=== PATIENT | male | born 1970 | race American Indian/Alaskan Native ===

== ENCOUNTER 2017-09-30 09:09 | Inpatient (IN) | payer OTHER ==
[2017-09-30 10:01] LABS: Basophils % (Auto) 0.8 % (0.0-1.8); Eosinophils # (Auto) 0.1 K/mm3 (0.0-0.4); Eosinophils % (Auto) 1.5 % (0.0-4.3); Hematocrit 47.1 % (35.5-45.6); Hemoglobin 15.6 gm/dl (11.8-15.2); Lymphocytes # (Auto) 1.8 K/mm3 (1.2-5.4); Lymphocytes % (Auto) 37.7 % (13.4-35.0); Mean Corpuscular HGB Conc 33 % (32-34); Mean Corpuscular Hemoglobin 31 pg (28-32); Mean Corpuscular Volume 93 fl (84-94); Monocytes # (Auto) 0.3 K/mm3 (0.0-0.8); Monocytes % (Auto) 6.6 % (0.0-7.3); Platelet Count 134 K/mm3 (140-440); Red Blood Count 5.09 M/mm3 (3.65-5.03); Red Cell Distribution Width 14.5 % (13.2-15.2)
[2017-09-30 10:27] LABS: BUN/Creatinine Ratio 12; Blood Urea Nitrogen 7 mg/dL (9-20); Calcium 8.5 mg/dL (8.4-10.2); Hemolysis Index 14
--- NOTE | 2017-09-30 11:04 | XRay Report ---
CHEST XRAY, 2 VIEWS: History: Shortness of breath. Findings: There is mild cardiomegaly. Pulmonary vessels are within normal limits. The lungs are clear and fully expanded. No infiltrate, pleural effusion or pneumothorax. Normal thoracic cage. IMPRESSION: Cardiomegaly.
[2017-09-30] MEDS ORDERED: ATIVAN IV PRN ×3 (12:42)
--- NOTE | 2017-09-30 13:04 | Emergency Department Report ---
ED Extremity Problem HPI - General Chief complaint: Dyspnea/Respdistress Stated complaint: BILATERAL LEG SWELLING Time Seen by Provider: 09/30/17 12:41 Source: patient, old records reviewed (no previous medical record for review) Mode of arrival: Ambulatory Limitations: No Limitations - History of Present Illness Initial comments: 47-year-old male with a history of daily alcohol use up until 3 days ago and no known past medical history presents to the hospital complaining of progressively worsening intermittent bilateral lower extremity swelling for several weeks. Patient has not seen a physician in many years. Patient was drinking 2 pints of wine and four 24 ounces of beer daily up until 3 days ago. Patient denies tremors or history of alcohol withdrawal seizures. Patient has pain to bilateral legs with mild to moderate tightness. Left leg is more swollen than the right. No recent travel or history of PE/DVT reported. Patient complains of some abdominal distention, mild dyspnea and exertion and orthopnea. - Related Data Home Medications Medication Instructions Recorded Confirmed Last Taken No Known Home Medications [No 09/30/17 09/30/17 Unknown Reported Home Medications] Allergies Allergy/AdvReac Type Severity Reaction Status Date / Time No Known Allergies Allergy Unverified 01/09/14 10:30 ED Review of Systems ROS: Stated complaint: BILATERAL LEG SWELLING Other details as noted in HPI Comment: All other systems reviewed and negative ED Past Medical Hx - Past Medical History Previous Medical History?: No - Surgical History Past Surgical History?: No - Social History Smoking Status: Current Every Day Smoker Substance Use Type: Alcohol - Medications Home Medications: Home Medications Medication Instructions Recorded Confirmed Last Taken Type No Known Home Medications [No 09/30/17 09/30/17 Unknown History Reported Home Medications] ED Physical Exam - General Limitations: No Limitations - Other Other exam information: General: No limitations Head exam: Atraumatic, normocephalic Eyes exam: Normal appearance, mild proptosis ENT: Moist mucous membrane, normal oropharynx Neck exam: Normal inspection, full range of motion, no meningismus nontender Respiratory exam: Clear to auscultation bilateral, no wheezes, rales, crackles Cardiovascular: Normal rate and rhythm, normal heart sounds Abdomen: Soft, nondistended, and nontender, with normal bowel sounds, no rebound, or guarding Extremity: Bilateral lower extremity pitting edema from the feet extending caudally to the thighs and lower abdominal wall. Left leg greater than the right. No warmth or erythema. Mild calf tenderness bilaterally. 2+ DP pulses equal bilaterally. Back: Normal Inspection, full range of motion, no tenderness Neurologic: Alert, oriented x3, cranial nerves intact, no motor or sensory deficit, no tremor Psychiatric: normal affect, normal mood Skin: Warm, dry, intact ED Course Vital Signs 09/30/17 09/30/17 09/30/17 09:17 14:41 15:52 Temperature 98.2 F 98.2 F Pulse Rate 109 H 95 H 91 H Respiratory 18 16 18 Rate Blood Pressure 181/128 Blood Pressure 137/102 143/111 [Left] O2 Sat by Pulse 97 96 94 Oximetry ED Medical Decision Making - Lab Data Result diagrams: 09/30/17 09:53 09/30/17 09:53 Lab Results 09/30/17 09/30/17 09/30/17 Range/Units 09:19 09:53 09:53 WBC 4.6 (4.5-11.0) K/mm3 RBC 5.09 H (3.65-5.03) M/mm3 Hgb 15.6 H (11.8-15.2) gm/dl Hct 47.1 H (35.5-45.6) % MCV 93 (84-94) fl MCH 31 (28-32) pg MCHC 33 (32-34) % RDW 14.5 (13.2-15.2) % Plt Count 134 L (140-440) K/mm3 Lymph % (Auto) 37.7 H (13.4-35.0) % [place] % (Auto) 6.6 (0.0-7.3) % Eos % (Auto) 1.5 (0.0-4.3) % Baso % (Auto) 0.8 (0.0-1.8) % Lymph # 1.8 (1.2-5.4) K/mm3 [place] # 0.3 (0.0-0.8) K/mm3 Eos # 0.1 (0.0-0.4) K/mm3 Baso # 0.0 (0.0-0.1) K/mm3 Seg Neutrophils % 53.4 (40.0-70.0) % Seg Neutrophils # 2.5 (1.8-7.7) K/mm3 Sodium 134 L (137-145) mmol/L Potassium 4.1 (3.6-5.0) mmol/L Chloride 97.8 L (98-107) mmol/L Carbon Dioxide 26 (22-30) mmol/L Anion Gap 14 mmol/L BUN 7 L (9-20) mg/dL Creatinine 0.6 L (0.8-1.5) mg/dL Estimated GFR > 60 ml/min BUN/Creatinine Ratio 12 % Glucose 146 H (75-100) mg/dL POC Glucose 134 H (70-105) Calcium 8.5 (8.4-10.2) mg/dL Magnesium (1.7-2.3) mg/dL Total Bilirubin (0.1-1.2) mg/dL Direct Bilirubin (0-0.2) mg/dL Indirect Bilirubin mg/dL AST (5-40) units/L ALT (7-56) units/L Alkaline Phosphatase (35-129) units/L NT-Pro-B Natriuret Pep 925.4 H (0-450) pg/mL Total Protein (6.3-8.2) g/dL Albumin (3.9-5) g/dL Albumin/Globulin Ratio % 04/26/18 Range/Units 09:53 WBC (4.5-11.0) K/mm3 RBC (3.65-5.03) M/mm3 Hgb (11.8-15.2) gm/dl Hct (35.5-45.6) % MCV (84-94) fl MCH (28-32) pg MCHC (32-34) % RDW (13.2-15.2) % Plt Count (140-440) K/mm3 Lymph % (Auto) (13.4-35.0) % [place] % (Auto) (0.0-7.3) % Eos % (Auto) (0.0-4.3) % Baso % (Auto) (0.0-1.8) % Lymph # (1.2-5.4) K/mm3 [place] # (0.0-0.8) K/mm3 Eos # (0.0-0.4) K/mm3 Baso # (0.0-0.1) K/mm3 Seg Neutrophils % (40.0-70.0) % Seg Neutrophils # (1.8-7.7) K/mm3 Sodium (137-145) mmol/L Potassium (3.6-5.0) mmol/L Chloride (98-107) mmol/L Carbon Dioxide (22-30) mmol/L Anion Gap mmol/L BUN (9-20) mg/dL Creatinine (0.8-1.5) mg/dL Estimated GFR ml/min BUN/Creatinine Ratio % Glucose (75-100) mg/dL POC Glucose (70-105) Calcium (8.4-10.2) mg/dL Magnesium 1.50 L (1.7-2.3) mg/dL Total Bilirubin 1.40 H (0.1-1.2) mg/dL Direct Bilirubin 0.5 H (0-0.2) mg/dL Indirect Bilirubin 0.9 mg/dL AST 21 (5-40) units/L ALT 13 (7-56) units/L Alkaline Phosphatase 122 (35-129) units/L NT-Pro-B Natriuret Pep (0-450) pg/mL Total Protein 6.9 (6.3-8.2) g/dL Albumin 3.6 L (3.9-5) g/dL Albumin/Globulin Ratio 1.1 % - EKG Data -: EKG Interpreted by [facility] EKG shows normal: sinus rhythm, axis (qrs -39), QRS complexes (qrsd 109), ST-T waves (no stemi/t inv) Rate: normal (99) - EKG Data When compared to previous EKG there are: previous EKG unavailable - Radiology Data Radiology results: report reviewed READ BY RADIOLOGIST CHEST XRAY, 2 VIEWS: History: Shortness of breath. Findings: There is mild cardiomegaly. Pulmonary vessels are within normal limits. The lungs are clear and fully expanded. No infiltrate, pleural effusion or pneumothorax. Normal thoracic cage. IMPRESSION: Cardiomegaly. Preliminary bilateral Doppler negative for DVT - Medical Decision Making Significant bilateral lower extremity edema without previous history. Elevated blood pressure and history of alcohol abuse. Plan to admit patient to the hospital for further workup. Mild elevation in BNP and patient may have new diagnosis of heart failure. Patient received IV magnesium for mild hypomagnesemia. CIWA protocol initiated but no signs of tremors during ED stay - Differential Diagnosis liver failure, renal failure, heart failure, hypertension, alcohol abuse Critical Care Time: No Critical care attestation.: If time is entered above; I have spent that time in minutes in the direct care of this critically ill patient, excluding procedure time. ED Disposition Clinical Impression: Bilateral leg edema, Alcohol abuse, Elevated blood pressure reading, Dyspnea Disposition: OP ADMIT IP TO THIS HOSP Is pt being admited?: Yes Condition: Stable Time of Disposition: 15:57 (Julia/hosp)
[2017-09-30 13:07] LABS: Albumin 3.6 g/dL (3.9-5); Bilirubin,Direct 0.5 mg/dL (0-0.2)
[2017-09-30] MEDS ORDERED: MAGNESIUM SULFATE 2GM/50ML 2 GM/50 ML BAG IV ONE (13:21)
[2017-09-30] MEDS ORDERED: APRESOLINE IV ONE (22:53)
--- NOTE | 2017-09-30 23:06 | History and Physical Report ---
History of Present Illness Date of examination: 09/30/17 Date of admission: 09/30/17 15:58 Chief complaint: Chief complaint: Swelling of both the legs and shortness of breath on exertion for the past 2 months History of present illness: History of Present Illness: 47-year-old -[place] male with a two-week dependence comes to the hospital complaining of bilateral lower extremity swelling for the last 6 weeks. Patient apparently has gained about 34 pounds. Also shortness of breath on minimal exertion. Also patient has been drinking regularly about 8 bottles of beer every day until 3 days ago. No withdrawal symptoms. Orthopnea present. Patient is class IV NYHA symptoms. The swelling is more in the legs up to the thighs. No recent travel No history of DVT Past Medical History Previous Medical History?: No Surgical History Past Surgical History?: No Social History Smoking Status: Current Every Day Smoker Substance Use Type: Alcohol Family history Hypertension Medications Home Medications: Home Medications Medication Instructions Recorded Confirmed Last Taken Type No Known Home Medications [No 09/30/17 09/30/17 Unknown History Reported Home Medications] Review of Systems ROS: Stated complaint: BILATERAL LEG SWELLING Other details as noted in HPI 14 point review of systems done and otherwise negative except for swelling of both the legs and dyspnea on exertion and weight gain of 34 pounds. No chest pain. Comment: All other systems reviewed and negative Medications and Allergies Allergies Allergy/AdvReac Type Severity Reaction Status Date / Time No Known Allergies Allergy Unverified 01/09/14 10:30 Home Medications Medication Instructions Recorded Confirmed Last Taken Type No Known Home Medications [No 09/30/17 09/30/17 Unknown History Reported Home Medications] Active Meds: Active Medications Lorazepam (Ativan) 2 mg IV Q1HR PRN PRN Reason: CIWA-Ar 8-15 Lorazepam (Ativan) 4 mg IV Q1HR PRN PRN Reason: CIWA-Ar 16-25 Lorazepam (Ativan) 4 mg IV Q15MIN PRN PRN Reason: CIWA-Ar >25 Exam - Physical Exam Narrative exam: Lying in bed comfortably - Constitutional Vitals: Temp Pulse Resp BP Pulse Ox 98.2 F 93 H 20 153/111 95 09/30/17 19:42 09/30/17 19:42 09/30/17 19:42 09/30/17 19:42 09/30/17 19:42 General appearance: Present: mild distress, well-nourished - EENT Eyes: Present: PERRL ENT: hearing intact, clear oral mucosa - Neck Neck: Present: supple, normal ROM - Respiratory Respiratory effort: normal Respiratory: bilateral: CTA - Cardiovascular Heart rate: 90 Rhythm: regular Heart Sounds: Present: S1 & S2. Absent: rub, click - Extremities Extremities: no ischemia, pulses intact, pulses symmetrical, abnormal (4+ pitting edema) Extremity abnormal: edema (4+ pitting edema) Peripheral Pulses: within normal limits - Abdominal General gastrointestinal: Present: soft, non-tender, non-distended, normal bowel sounds Male genitourinary: Present: normal, scrotal edema - Integumentary Integumentary: Present: clear, warm, dry - Musculoskeletal Musculoskeletal: gait normal, strength equal bilaterally - Psychiatric Psychiatric: appropriate mood/affect, intact judgment & insight - Neurologic Neurologic: CNII-XII intact, moves all extremities - Allied Health Allied health notes reviewed: nursing, case management Results - Labs CBC & Chem 7: 09/30/17 09:53 09/30/17 09:53 Labs: Laboratory Last Values WBC 4.6 K/mm3 (4.5-11.0) 09/30/17 09:53 RBC 5.09 M/mm3 (3.65-5.03) H 09/30/17 09:53 Hgb 15.6 gm/dl (11.8-15.2) H 09/30/17 09:53 Hct 47.1 % (35.5-45.6) H 09/30/17 09:53 MCV 93 fl (84-94) 09/30/17 09:53 MCH 31 pg (28-32) 09/30/17 09:53 MCHC 33 % (32-34) 09/30/17 09:53 RDW 14.5 % (13.2-15.2) 09/30/17 09:53 Plt Count 134 K/mm3 (140-440) L 09/30/17 09:53 Lymph % (Auto) 37.7 % (13.4-35.0) H 09/30/17 09:53 [place] % (Auto) 6.6 % (0.0-7.3) 09/30/17 09:53 Eos % (Auto) 1.5 % (0.0-4.3) 09/30/17 09:53 Baso % (Auto) 0.8 % (0.0-1.8) 09/30/17 09:53 Lymph # 1.8 K/mm3 (1.2-5.4) 09/30/17 09:53 [place] # 0.3 K/mm3 (0.0-0.8) 09/30/17 09:53 Eos # 0.1 K/mm3 (0.0-0.4) 09/30/17 09:53 Baso # 0.0 K/mm3 (0.0-0.1) 09/30/17 09:53 Seg Neutrophils % 53.4 % (40.0-70.0) 09/30/17 09:53 Seg Neutrophils # 2.5 K/mm3 (1.8-7.7) 09/30/17 09:53 Sodium 134 mmol/L (137-145) L 09/30/17 09:53 Potassium 4.1 mmol/L (3.6-5.0) 09/30/17 09:53 Chloride 97.8 mmol/L (98-107) L 09/30/17 09:53 Carbon Dioxide 26 mmol/L (22-30) 09/30/17 09:53 Anion Gap 14 mmol/L 09/30/17 09:53 BUN 7 mg/dL (9-20) L 09/30/17 09:53 Creatinine 0.6 mg/dL (0.8-1.5) L 09/30/17 09:53 Estimated GFR > 60 ml/min 09/30/17 09:53 BUN/Creatinine Ratio 12 % 09/30/17 09:53 Glucose 146 mg/dL (75-100) H 09/30/17 09:53 POC Glucose 174 (70-105) H 09/30/17 21:49 Calcium 8.5 mg/dL (8.4-10.2) 09/30/17 09:53 Magnesium 1.50 mg/dL (1.7-2.3) L 09/30/17 09:53 Total Bilirubin 1.40 mg/dL (0.1-1.2) H 09/30/17 09:53 Direct Bilirubin 0.5 mg/dL (0-0.2) H 09/30/17 09:53 Indirect Bilirubin 0.9 mg/dL 09/30/17 09:53 AST 21 units/L (5-40) 09/30/17 09:53 ALT 13 units/L (7-56) 09/30/17 09:53 Alkaline Phosphatase 122 units/L (35-129) 09/30/17 09:53 NT-Pro-B Natriuret Pep 925.4 pg/mL (0-450) H 09/30/17 09:53 Total Protein 6.9 g/dL (6.3-8.2) 09/30/17 09:53 Albumin 3.6 g/dL (3.9-5) L 09/30/17 09:53 Albumin/Globulin Ratio 1.1 % 09/30/17 09:53 - Imaging and Cardiology EKG: report reviewed Chest x-ray: report reviewed (cardiomegaly) Assessment and Plan Advance Directives: Yes (full code) VTE prophylaxis?: Chemical Plan of care discussed with patient/family: Yes - Patient Problems (1) CHF exacerbation Current Visit: Yes Status: Acute Qualifiers: Heart failure type: combined systolic and diastolic Qualified Code(s): I50.43 - Acute on chronic combined systolic (congestive) and diastolic ( congestive) heart failure Plan to address problem: Echocardiogram ordered for ejection fraction and valve function IV Lasix 40 mg every 12 KCl 20 mEq every 12 (2) Alcohol abuse Current Visit: Yes Status: Chronic Plan to address problem: CIWA protocol initiated (3) Bilateral leg edema Current Visit: Yes Status: Acute Plan to address problem: IV Lasix for now Doppler studies negative for DVT and SVT (4) Hypomagnesemia Current Visit: Yes Status: Acute Plan to address problem: supplemented (5) Hyperglycemia Current Visit: Yes Status: Acute Plan to address problem: A1c ordered Coverage ordered May have diabetes Oral hypoglycemics if necessary (6) Hyponatremia Current Visit: Yes Status: Acute Plan to address problem: Mild Dilutional Check osmolarity (7) Malnutrition Current Visit: Yes Status: Acute Qualifiers: Malnutrition type: protein-calorie malnutrition Protein-calorie malnutrition severity: mild Qualified Code(s): E44.1 - Mild protein-calorie malnutrition Plan to address problem: Dietitian consult requested (8) DVT prophylaxis Current Visit: Yes Status: Acute Plan to address problem: Heparin subcutaneously
[2017-09-30] MEDS ORDERED: MILK OF MAGNESIA PO PRN (23:14)
[2017-09-30] MEDS ORDERED: SODIUM CHLORIDE FLUSH SYRINGE 10 ML IV PRN (23:14)
[2017-09-30] MEDS ORDERED: AMBIEN PO PRN (23:14)
[2017-09-30] MEDS ORDERED: REGLAN IV PRN (23:14)
[2017-09-30] MEDS ORDERED: DULCOLAX PR PRN (23:14)
[2017-09-30] MEDS ORDERED: D50W (25GM) Syringe IV PRN (23:14)
[2017-09-30] MEDS ORDERED: ALUM-MAG HYDROX-SIMETH 200-200-20MG/5ML PO PRN (23:14)
[2017-09-30] MEDS ORDERED: MORPHINE IV PRN (23:14)
[2017-09-30] MEDS ORDERED: PERCOCET 5/325 PO PRN (23:14)
[2017-09-30] MEDS ORDERED: PHENERGAN PR PRN (23:14)
[2017-09-30] MEDS ORDERED: ZOFRAN IV PRN (23:14)
[2017-09-30] MEDS ORDERED: TYLENOL PO PRN (23:14)
[2017-09-30] MEDS ORDERED: K-DUR PO ONE (23:17)
[2017-10-01] MEDS ORDERED: MAGNESIUM SULFATE 2GM/50ML 2 GM/50 ML BAG IV ONE
[2017-10-01 04:08] LABS: Basophils % (Auto) 0.7 % (0.0-1.8); Eosinophils # (Auto) 0.1 K/mm3 (0.0-0.4); Eosinophils % (Auto) 1.8 % (0.0-4.3); Lymphocytes # (Auto) 1.6 K/mm3 (1.2-5.4); Lymphocytes % (Auto) 41.7 % (13.4-35.0); Mean Corpuscular HGB Conc 33 % (32-34); Mean Corpuscular Hemoglobin 30 pg (28-32); Mean Corpuscular Volume 93 fl (84-94); Monocytes # (Auto) 0.2 K/mm3 (0.0-0.8); Platelet Count 125 K/mm3 (140-440); Red Blood Count 4.95 M/mm3 (3.65-5.03); Red Cell Distribution Width 14.9 % (13.2-15.2)
[2017-10-01 04:22] LABS: Alanine Aminotransferase 12 units/L (7-56); Albumin 3.6 g/dL (3.9-5); BUN/Creatinine Ratio 9; Blood Urea Nitrogen 6 mg/dL (9-20); Calcium 8.7 mg/dL (8.4-10.2); Hemolysis Index 2
[2017-10-01] MEDS: LASIX IV SCH ×2 (05:25→17:49)
[2017-10-01] MEDS: HumaLOG SUB-Q SCH ×4 (07:30→22:28)
[2017-10-01] MEDS: PEPCID PO SCH ×2 (09:38→22:18)
[2017-10-01] MEDS: COZAAR PO SCH (09:39)
[2017-10-01] MEDS: SODIUM CHLORIDE FLUSH SYRINGE 10 ML IV SCH ×2 (09:39→22:28)
--- NOTE | 2017-10-01 15:55 | Progress Note ---
Assessment and Plan Assessment and plan: Patient is 47 yo man with history of tobacco dependency (1ppd), hypertension, diabetes mellitus type 2 (not on any medications) and alcohol abuse (he drinks MAD DOG 20/20 wine and six 24 oz [employer] beers everyday, last drink was 4 days ago, he was so swollen and distended, he didn't want to drink) who pw sob and ble edema. He was admitted for CHF. 2D ECHO reported as mild concentric left ventricular hypertrophy, global left ventricular systolic function is severely decreased, estimated ejection fraction is 15-20%, right ventricular global systolic function is mildly reduced , ASD is demonstrated by agitated saline contrast, trace TR, no pericardial effusion, IVc is dilated and markedly increased right atrial pressure read by Dr. 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 Follow-up on current diagnosis for sob and leg edema which has improved. Overnight uneventful. Patient denies any chest pain, nausea/vomiting or severe headaches. Imaging, nursing note, chart, labs and old chart reviewed. Discussed with patient. Hospitalist Physical - Physical exam Narrative exam: GEN: WDWN, NAD, Awake, Alert, Orientated x 3 HEENT: NCAT, EOMI, PERRL, OP Clear NECK: supple, no adenopathy, no thyromegaly, + JVD CVS/HEART: RRR, normal S1S2, pulses present bilaterally CHEST/LUNGS: bilateral crackles Symmetrical chest expansion, good air entry bilaterally GI/Abdomen: soft, NTND, good bowel sounds, no guarding or rebound /Bladder: no suprapubic tenderness, no CVA or paraspinal tenderness EXT/Skin: pitting BLE edema, no obvious rash MSK: FROM x 4 Neuro: CN 2-12 grossly intact, no new focal deficits Psych: calm - Constitutional Vitals: Temp Pulse Resp BP Pulse Ox 97.6 F 91 H 20 151/101 98 10/01/17 14:58 10/01/17 14:58 10/01/17 14:58 10/01/17 14:58 10/01/17 14:58 General appearance: Present: well-nourished Results - Labs CBC & Chem 7: 10/01/17 02:31 10/01/17 02:31 Labs: Laboratory Last Values WBC 4.0 K/mm3 (4.5-11.0) L 10/01/17 02:31 RBC 4.95 M/mm3 (3.65-5.03) 10/01/17 02:31 Hgb 15.0 gm/dl (11.8-15.2) 10/01/17 02:31 Hct 46.0 % (35.5-45.6) H 10/01/17 02:31 MCV 93 fl (84-94) 10/01/17 02:31 MCH 30 pg (28-32) 10/01/17 02:31 MCHC 33 % (32-34) 10/01/17 02:31 RDW 14.9 % (13.2-15.2) 10/01/17 02:31 Plt Count 125 K/mm3 (140-440) L 10/01/17 02:31 Lymph % (Auto) 41.7 % (13.4-35.0) H 10/01/17 02:31 [place] % (Auto) 6.0 % (0.0-7.3) 10/01/17 02:31 Eos % (Auto) 1.8 % (0.0-4.3) 10/01/17 02:31 Baso % (Auto) 0.7 % (0.0-1.8) 10/01/17 02:31 Lymph # 1.6 K/mm3 (1.2-5.4) 10/01/17 02:31 [place] # 0.2 K/mm3 (0.0-0.8) 10/01/17 02:31 Eos # 0.1 K/mm3 (0.0-0.4) 10/01/17 02:31 Baso # 0.0 K/mm3 (0.0-0.1) 10/01/17 02:31 Seg Neutrophils % 49.8 % (40.0-70.0) 10/01/17 02:31 Seg Neutrophils # 2.0 K/mm3 (1.8-7.7) 10/01/17 02:31 Sodium 136 mmol/L (137-145) L 10/01/17 02:31 Potassium 4.0 mmol/L (3.6-5.0) 10/01/17 02:31 Chloride 95.3 mmol/L (98-107) L 10/01/17 02:31 Carbon Dioxide 28 mmol/L (22-30) 10/01/17 02:31 Anion Gap 17 mmol/L 10/01/17 02:31 BUN 6 mg/dL (9-20) L 10/01/17 02:31 Creatinine 0.7 mg/dL (0.8-1.5) L 10/01/17 02:31 Estimated GFR > 60 ml/min 10/01/17 02:31 BUN/Creatinine Ratio 9 % 10/01/17 02:31 Glucose 108 mg/dL (75-100) H 10/01/17 02:31 POC Glucose 122 (70-105) H 10/01/17 05:51 Hemoglobin A1c 8.2 % (4-6) H 09/30/17 23:27 Calcium 8.7 mg/dL (8.4-10.2) 10/01/17 02:31 Magnesium 1.50 mg/dL (1.7-2.3) L 09/30/17 09:53 Total Bilirubin 1.30 mg/dL (0.1-1.2) H 10/01/17 02:31 Direct Bilirubin 0.5 mg/dL (0-0.2) H 09/30/17 09:53 Indirect Bilirubin 0.9 mg/dL 09/30/17 09:53 AST 19 units/L (5-40) 10/01/17 02:31 ALT 12 units/L (7-56) 10/01/17 02:31 Alkaline Phosphatase 101 units/L (35-129) 10/01/17 02:31 NT-Pro-B Natriuret Pep 925.4 pg/mL (0-450) H 09/30/17 09:53 Total Protein 6.7 g/dL (6.3-8.2) 10/01/17 02:31 Albumin 3.6 g/dL (3.9-5) L 10/01/17 02:31 Albumin/Globulin Ratio 1.2 % 10/01/17 02:31
[2017-10-02] MEDS: LASIX IV SCH ×2 (06:03→17:44)
[2017-10-02] MEDS: HumaLOG SUB-Q SCH ×4 (09:57→22:58)
[2017-10-02] MEDS: PEPCID PO SCH ×2 (10:01→21:50)
[2017-10-02] MEDS: COZAAR PO SCH (10:01)
[2017-10-02] MEDS: SODIUM CHLORIDE FLUSH SYRINGE 10 ML IV SCH ×2 (10:02→21:51)
[2017-10-02] MEDS ORDERED: LOVENOX SUB-Q SCH (11:00)
--- NOTE | 2017-10-02 13:26 | Progress Note ---
Assessment and Plan Assessment and plan: Patient is 47 yo man with history of tobacco dependency (1ppd), hypertension, diabetes mellitus type 2 (not on any medications) and alcohol abuse (he drinks MAD DOG 20/20 wine and six 24 oz [place] [employer] beers everyday, last drink was 4 days ago, he was so swollen and distended, he didn't want to drink) who pw sob and ble edema. He was admitted for CHF. 2D ECHO reported as mild concentric left ventricular hypertrophy, global left ventricular systolic function is severely decreased, estimated ejection fraction is 15-20%, right ventricular global systolic function is mildly reduced , ASD is demonstrated by agitated saline contrast, trace TR, no pericardial effusion, IVc is dilated and markedly increased right atrial pressure read by Dr. Henna Rdz Acute systolic heart failure with Cardiomyopathy. iv lasix Tobacco dependency. 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 Follow-up on current diagnosis for sob and leg edema which has improved. Overnight uneventful. Patient denies any chest pain, nausea/vomiting or severe headaches. Imaging, nursing note, chart, labs and old chart reviewed. Discussed with patient. Hospitalist Physical - Physical exam Narrative exam: GEN: WDWN, NAD, Awake, Alert, Orientated x 3 HEENT: NCAT, EOMI, PERRL, OP Clear NECK: supple, no adenopathy, no thyromegaly, + JVD CVS/HEART: RRR, normal S1S2, pulses present bilaterally CHEST/LUNGS: bilateral crackles Symmetrical chest expansion, good air entry bilaterally GI/Abdomen: soft, NTND, good bowel sounds, no guarding or rebound /Bladder: no suprapubic tenderness, no CVA or paraspinal tenderness EXT/Skin: pitting BLE edema, no obvious rash MSK: FROM x 4 Neuro: CN 2-12 grossly intact, no new focal deficits Psych: calm - Constitutional Vitals: Temp Pulse Resp BP Pulse Ox 97.8 F 96 H 20 137/104 97 10/02/17 07:37 10/02/17 07:37 10/02/17 07:37 10/02/17 07:37 10/02/17 07:37 General appearance: Present: well-nourished Results - Labs CBC & Chem 7: 10/01/17 02:31 10/01/17 02:31 Labs: Laboratory Last Values WBC 4.0 K/mm3 (4.5-11.0) L 10/01/17 02:31 RBC 4.95 M/mm3 (3.65-5.03) 10/01/17 02:31 Hgb 15.0 gm/dl (11.8-15.2) 10/01/17 02:31 Hct 46.0 % (35.5-45.6) H 10/01/17 02:31 MCV 93 fl (84-94) 10/01/17 02:31 MCH 30 pg (28-32) 10/01/17 02:31 MCHC 33 % (32-34) 10/01/17 02:31 RDW 14.9 % (13.2-15.2) 10/01/17 02:31 Plt Count 125 K/mm3 (140-440) L 10/01/17 02:31 Lymph % (Auto) 41.7 % (13.4-35.0) H 10/01/17 02:31 [place] % (Auto) 6.0 % (0.0-7.3) 10/01/17 02:31 Eos % (Auto) 1.8 % (0.0-4.3) 10/01/17 02:31 Baso % (Auto) 0.7 % (0.0-1.8) 10/01/17 02:31 Lymph # 1.6 K/mm3 (1.2-5.4) 10/01/17 02:31 [place] # 0.2 K/mm3 (0.0-0.8) 10/01/17 02:31 Eos # 0.1 K/mm3 (0.0-0.4) 10/01/17 02:31 Baso # 0.0 K/mm3 (0.0-0.1) 10/01/17 02:31 Seg Neutrophils % 49.8 % (40.0-70.0) 10/01/17 02:31 Seg Neutrophils # 2.0 K/mm3 (1.8-7.7) 10/01/17 02:31 Sodium 136 mmol/L (137-145) L 10/01/17 02:31 Potassium 4.0 mmol/L (3.6-5.0) 10/01/17 02:31 Chloride 95.3 mmol/L (98-107) L 10/01/17 02:31 Carbon Dioxide 28 mmol/L (22-30) 10/01/17 02:31 Anion Gap 17 mmol/L 10/01/17 02:31 BUN 6 mg/dL (9-20) L 10/01/17 02:31 Creatinine 0.7 mg/dL (0.8-1.5) L 10/01/17 02:31 Estimated GFR > 60 ml/min 10/01/17 02:31 BUN/Creatinine Ratio 9 % 10/01/17 02:31 Glucose 108 mg/dL (75-100) H 10/01/17 02:31 POC Glucose 175 (70-105) H 10/02/17 11:19 Hemoglobin A1c 8.2 % (4-6) H 09/30/17 23:27 Calcium 8.7 mg/dL (8.4-10.2) 10/01/17 02:31 Magnesium 1.50 mg/dL (1.7-2.3) L 09/30/17 09:53 Total Bilirubin 1.30 mg/dL (0.1-1.2) H 10/01/17 02:31 Direct Bilirubin 0.5 mg/dL (0-0.2) H 09/30/17 09:53 Indirect Bilirubin 0.9 mg/dL 09/30/17 09:53 AST 19 units/L (5-40) 10/01/17 02:31 ALT 12 units/L (7-56) 10/01/17 02:31 Alkaline Phosphatase 101 units/L (35-129) 10/01/17 02:31 NT-Pro-B Natriuret Pep 925.4 pg/mL (0-450) H 09/30/17 09:53 Total Protein 6.7 g/dL (6.3-8.2) 10/01/17 02:31 Albumin 3.6 g/dL (3.9-5) L 10/01/17 02:31 Albumin/Globulin Ratio 1.2 % 10/01/17 02:31
[2017-10-02] MEDS: LOVENOX SUB-Q SCH (14:13)
[2017-10-02] MEDS: LOPRESSOR PO SCH (21:50)
[2017-10-03 05:43] LABS: Hematocrit 47.6 % (35.5-45.6); Hemoglobin 15.2 gm/dl (11.8-15.2); Mean Corpuscular HGB Conc 32 % (32-34); Mean Corpuscular Hemoglobin 30 pg (28-32); Mean Corpuscular Volume 92 fl (84-94); Platelet Count 147 K/mm3 (140-440); Red Blood Count 5.17 M/mm3 (3.65-5.03); Red Cell Distribution Width 14.4 % (13.2-15.2)
[2017-10-03 06:05] LABS: BUN/Creatinine Ratio 11; Blood Urea Nitrogen 8 mg/dL (9-20); Hemolysis Index 0
[2017-10-03] MEDS: LASIX IV SCH ×2 (06:35→17:50)
[2017-10-03] MEDS: HumaLOG SUB-Q SCH ×4 (07:52→22:32)
--- NOTE | 2017-10-03 09:08 | Consultation ---
REFERRING PHYSICIAN: Dr. Dumont and Dr. Alvin Khan REASON FOR CONSULTATION: Advice and opinion regarding echo findings. HISTORY OF PRESENT ILLNESS: The patient is a very pleasant 47-year-old -[place] gentleman with a history of hypertension, diabetes, alcohol abuse, tobacco abuse, who presents with shortness of breath. He states he has marked shortness of breath. No syncope. He has orthopnea. No chest pain, no palpitations. No blurred vision or headache. Seen at bedside on telemetry. No rashes hematochezia, melena, hemoptysis, fevers or chills. REVIEW OF SYSTEMS: As per HPI. PAST MEDICAL HISTORY: As aforementioned. SOCIAL HISTORY: Drinks quite a bit of alcohol on a daily basis including a questionable six 24 ounce bud ice beers everyday and wine on a daily basis. Does smoke as well. FAMILY HISTORY: No family history of premature heart disease. MEDICATIONS: Inpatient and outpatient medications reviewed. PHYSICAL EXAMINATION: VITAL SIGNS: Blood pressure is 130/90. He is afebrile. Tele reveals sinus rhythm. O2 sat is 97 on room air. GENERAL: This is a middle-aged -[place] gentleman in no apparent distress, oriented x 3. HEENT: Sclerae anicteric. PERRLA. NECK: Supple. No mass or JVD. CHEST: Decreased breath sounds bilateral bases with mild bibasilar rales. CARDIOVASCULAR: Regular rate rhythm, S1, S2. ABDOMEN: Soft, nontender. EXTREMITIES: 3+ edema all the way up to the thighs. SKIN: Warm, dry and intact. No rashes. DIAGNOSTIC DATA: EKG reveals normal sinus rhythm, left axis deviation, left atrial enlargement. LABORATORY DATA: Creatinine is 0.7. Sodium is 136, glucose 146. Hemoglobin A1c is 8.2. ProBNP is 925, albumin is 3.6, MCV is 93, platelet count 125. Echocardiogram was ordered yesterday revealed an ejection fraction of 10-15%, severe dilated and hypokinetic left ventricle, questionable ASD. ASSESSMENT: In summary, the patient is a pleasant 47-year-old -[place] gentleman. 1. Acute systolic heart failure. 2. Questionable atrial septal defect. 3. Alcohol abuse. 4. Tobacco abuse. 5. Hypertension. 6. Diabetes. PLAN: At this point, continue losartan, IV Lasix, start low dose metoprolol. Agree with [place] protocol, diabetes control. He has quite a bit of fluid on board. Once he is adequately diuresed, we will consider left and right heart catheterization to evaluate for ischemic heart disease as well as congenital heart disease (ASD). I have discussed my findings and plan of care at length with the patient. All questions and concerns were addressed. Thank you for this kind consultation. I would be happy to follow along with you. JOB# [id number] SBM/NTS
[2017-10-03] MEDS: COZAAR PO SCH (09:42)
[2017-10-03] MEDS: PEPCID PO SCH ×2 (09:43→21:40)
[2017-10-03] MEDS: LOVENOX SUB-Q SCH (09:43)
[2017-10-03] MEDS: LOPRESSOR PO SCH ×2 (09:43→21:40)
[2017-10-03] MEDS: SODIUM CHLORIDE FLUSH SYRINGE 10 ML IV SCH ×2 (09:43→21:42)
--- NOTE | 2017-10-03 10:45 | Progress Note ---
Assessment and Plan Assessment and plan: Patient is 47 yo man with history of tobacco dependency (1ppd), hypertension, diabetes mellitus type 2 (not on any medications) and alcohol abuse (he drinks MAD DOG 20/20 wine and six 24 oz [place] Ice beers everyday, last drink was 4 days ago, he was so swollen and distended, he didn't want to drink) who pw sob and ble edema. He was admitted for CHF. 2D ECHO reported as mild concentric left ventricular hypertrophy, global left ventricular systolic function is severely decreased, estimated ejection fraction is 15-20%, right ventricular global systolic function is mildly reduced , ASD is demonstrated by agitated saline contrast, trace TR, no pericardial effusion, IVc is dilated and markedly increased right atrial pressure read by Dr. Henna Rdz Acute systolic heart failure with Cardiomyopathy. iv lasix Tobacco dependency. 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 Follow-up on current diagnosis for sob and leg edema which has improved. Overnight uneventful. Patient denies any chest pain, nausea/vomiting or severe headaches. Imaging, nursing note, chart, labs and old chart reviewed. Discussed with patient. Hospitalist Physical - Physical exam Narrative exam: GEN: WDWN, NAD, Awake, Alert, Orientated x 3 HEENT: NCAT, EOMI, PERRL, OP Clear NECK: supple, no adenopathy, no thyromegaly, + JVD CVS/HEART: RRR, normal S1S2, pulses present bilaterally CHEST/LUNGS: bilateral crackles Symmetrical chest expansion, good air entry bilaterally GI/Abdomen: soft, NTND, good bowel sounds, no guarding or rebound /Bladder: no suprapubic tenderness, no CVA or paraspinal tenderness EXT/Skin: pitting BLE edema, no obvious rash MSK: FROM x 4 Neuro: CN 2-12 grossly intact, no new focal deficits Psych: calm - Constitutional Vitals: Temp Pulse Resp BP Pulse Ox 98.4 F 80 19 128/96 97 10/03/17 07:28 10/03/17 07:28 10/03/17 07:28 10/03/17 07:28 10/03/17 07:28 General appearance: Present: well-nourished Results - Labs CBC & Chem 7: 10/03/17 05:28 10/03/17 05:28 Labs: Laboratory Last Values WBC 4.2 K/mm3 (4.5-11.0) L 10/03/17 05:28 RBC 5.17 M/mm3 (3.65-5.03) H 10/03/17 05:28 Hgb 15.2 gm/dl (11.8-15.2) 10/03/17 05:28 Hct 47.6 % (35.5-45.6) H 10/03/17 05:28 MCV 92 fl (84-94) 10/03/17 05:28 MCH 30 pg (28-32) 10/03/17 05:28 MCHC 32 % (32-34) 10/03/17 05:28 RDW 14.4 % (13.2-15.2) 10/03/17 05:28 Plt Count 147 K/mm3 (140-440) 10/03/17 05:28 Lymph % (Auto) 41.7 % (13.4-35.0) H 10/01/17 02:31 [place] % (Auto) 6.0 % (0.0-7.3) 10/01/17 02:31 Eos % (Auto) 1.8 % (0.0-4.3) 10/01/17 02:31 Baso % (Auto) 0.7 % (0.0-1.8) 10/01/17 02:31 Lymph # 1.6 K/mm3 (1.2-5.4) 10/01/17 02:31 [place] # 0.2 K/mm3 (0.0-0.8) 10/01/17 02:31 Eos # 0.1 K/mm3 (0.0-0.4) 10/01/17 02:31 Baso # 0.0 K/mm3 (0.0-0.1) 10/01/17 02:31 Seg Neutrophils % 49.8 % (40.0-70.0) 10/01/17 02:31 Seg Neutrophils # 2.0 K/mm3 (1.8-7.7) 10/01/17 02:31 Sodium 134 mmol/L (137-145) L 10/03/17 05:28 Potassium 4.2 mmol/L (3.6-5.0) 10/03/17 05:28 Chloride 92.4 mmol/L (98-107) L 10/03/17 05:28 Carbon Dioxide 31 mmol/L (22-30) H 10/03/17 05:28 Anion Gap 15 mmol/L 10/03/17 05:28 BUN 8 mg/dL (9-20) L 10/03/17 05:28 Creatinine 0.7 mg/dL (0.8-1.5) L 10/03/17 05:28 Estimated GFR > 60 ml/min 10/03/17 05:28 BUN/Creatinine Ratio 11 % 10/03/17 05:28 Glucose 139 mg/dL (75-100) H 10/03/17 05:28 POC Glucose 117 (70-105) H 10/03/17 05:27 Hemoglobin A1c 8.2 % (4-6) H 09/30/17 23:27 Calcium 9.0 mg/dL (8.4-10.2) 10/03/17 05:28 Magnesium 1.50 mg/dL (1.7-2.3) L 09/30/17 09:53 Total Bilirubin 1.30 mg/dL (0.1-1.2) H 10/01/17 02:31 Direct Bilirubin 0.5 mg/dL (0-0.2) H 09/30/17 09:53 Indirect Bilirubin 0.9 mg/dL 09/30/17 09:53 AST 19 units/L (5-40) 10/01/17 02:31 ALT 12 units/L (7-56) 10/01/17 02:31 Alkaline Phosphatase 101 units/L (35-129) 10/01/17 02:31 NT-Pro-B Natriuret Pep 925.4 pg/mL (0-450) H 09/30/17 09:53 Total Protein 6.7 g/dL (6.3-8.2) 10/01/17 02:31 Albumin 3.6 g/dL (3.9-5) L 10/01/17 02:31 Albumin/Globulin Ratio 1.2 % 10/01/17 02:31
--- NOTE | 2017-10-03 12:13 | Progress Note ---
Assessment and Plan 47yo aam: 1. severe dcm 2. ? asd 3. HFrEF (improved) 4. etoh/tobacco abuse 5. obesity 6. dm 7. htn plan: cont arb/bb/iv lasix hold am lovenox l/rhc in am pt has no know dye allergies and is able to lay flat risks benefits/alternatives d/w pt at length Subjective Date of service: 10/03/17 Objective Vital Signs Temp Pulse Pulse Resp BP Pulse Ox 10/03/17 07:28 98.4 F 80 19 128/96 97 10/02/17 22:00 94 H 10/02/17 21:50 93 H 135/95 10/02/17 21:16 97.6 F 93 H 16 135/95 97 10/02/17 18:13 144/100 10/02/17 16:14 98.1 F 19 153/109 10/02/17 15:59 97.9 F 98 H 19 155/105 98 - Labs and Meds CBC 10/03/17 Range/Units 05:28 WBC 4.2 L (4.5-11.0) K/mm3 RBC 5.17 H (3.65-5.03) M/mm3 Hgb 15.2 (11.8-15.2) gm/dl Hct 47.6 H (35.5-45.6) % Plt Count 147 (140-440) K/mm3 Comprehensive Metabolic Panel 10/03/17 Range/Units 05:28 Sodium 134 L (137-145) mmol/L Potassium 4.2 (3.6-5.0) mmol/L Chloride 92.4 L (98-107) mmol/L Carbon Dioxide 31 H (22-30) mmol/L BUN 8 L (9-20) mg/dL Creatinine 0.7 L (0.8-1.5) mg/dL Glucose 139 H (75-100) mg/dL Calcium 9.0 (8.4-10.2) mg/dL - Imaging and Cardiology EKG: report reviewed
[2017-10-04 05:14] LABS: BUN/Creatinine Ratio 14; Blood Urea Nitrogen 14 mg/dL (9-20); Calcium 9.2 mg/dL (8.4-10.2); Hemolysis Index 9
[2017-10-04 05:19] LABS: Hematocrit 48.9 % (35.5-45.6); Hemoglobin 15.8 gm/dl (11.8-15.2); Mean Corpuscular HGB Conc 32 % (32-34); Mean Corpuscular Hemoglobin 30 pg (28-32); Mean Corpuscular Volume 93 fl (84-94); Platelet Count 161 K/mm3 (140-440); Red Blood Count 5.27 M/mm3 (3.65-5.03); Red Cell Distribution Width 14.6 % (13.2-15.2)
[2017-10-04 05:36] LABS: INR 1.05 (0.87-1.13)
[2017-10-04] MEDS: LASIX IV SCH ×2 (06:12→17:27)
[2017-10-04] MEDS ORDERED: ECOTRIN PO ONE ×2 (07:47→08:20)
[2017-10-04] MEDS ORDERED: NACL 0.9% 500 ML 500 ML IV SCH (08:00)
[2017-10-04 08:06] LABS: BUN/Creatinine Ratio 15; Blood Urea Nitrogen 15 mg/dL (9-20); Hemolysis Index 19
[2017-10-04] MEDS ORDERED: NACL 0.9% 500 ML 500 ML ONE (08:20)
[2017-10-04] MEDS ORDERED: HEPARIN/NS 5000 UNIT/500ML(CATH LAB) 1,000 ML IR ONE (08:33)
[2017-10-04] MEDS ORDERED: HEPARIN 10,000 UNITS/10 ML ONE (08:33)
[2017-10-04] MEDS ORDERED: VERSED ONE (08:33)
[2017-10-04] MEDS ORDERED: CALAN ONE (08:33)
[2017-10-04] MEDS ORDERED: NITROGLYCERIN SYRINGE 3 ML ONE (08:33)
[2017-10-04] MEDS ORDERED: SUBLIMAZE ONE (08:34)
[2017-10-04] MEDS: HumaLOG SUB-Q SCH ×4 (08:37→22:52)
[2017-10-04] MEDS: XYLOCAINE 2% INFILTRATI ONE ×2 (09:07→09:09)
[2017-10-04] MEDS ORDERED: LASIX ONE (09:25)
--- NOTE | 2017-10-04 09:49 | Progress Note ---
Assessment and Plan acute systolic heart failure acute respiratory failure htn smoker cad chol rec: cont asa, lasix bid iv today and am po bid and cont losartan and lopressor and statin and may discharge in am and check am labs. followup with radha barnes this week. Subjective Date of service: 10/04/17 Principal diagnosis: chf Interval history: sob has improved Objective Vital Signs Temp Pulse Resp BP BP Pulse Ox 10/04/17 07:58 97.8 F 78 18 109/80 97 10/03/17 22:03 98.2 F 83 24 109/69 95 10/03/17 21:40 81 120/77 10/03/17 16:44 97.9 F 79 20 106/79 98 - Physical Examination General: Appears Well HEENT: Positive: PERRL, EOMI Neck: Positive: trachea midline Cardiac: Positive: Reg Rate and Rhythm Lungs: Positive: clear to auscultation Neuro: Positive: Grossly Intact Abdomen: Positive: Soft Incision: Cardiac Cath Site (no hematoma) Extremities: Present: edema (mild) - Labs and Meds Coagulation 10/04/17 Range/Units 04:20 PT 14.3 (12.2-14.9) Sec. INR 1.05 (0.87-1.13) CBC 10/04/17 Range/Units 04:20 WBC 4.8 (4.5-11.0) K/mm3 RBC 5.27 H (3.65-5.03) M/mm3 Hgb 15.8 H (11.8-15.2) gm/dl Hct 48.9 H (35.5-45.6) % Plt Count 161 (140-440) K/mm3 Comprehensive Metabolic Panel 10/04/17 10/04/17 Range/Units 04:20 07:35 Sodium 133 L 132 L (137-145) mmol/L Potassium 5.5 H D 4.8 (3.6-5.0) mmol/L Chloride 90.1 L 92.3 L (98-107) mmol/L Carbon Dioxide 30 26 (22-30) mmol/L BUN 14 15 (9-20) mg/dL Creatinine 1.0 1.0 (0.8-1.5) mg/dL Glucose 127 H 130 H (75-100) mg/dL Calcium 9.2 9.0 (8.4-10.2) mg/dL - Imaging and Cardiology EKG: report reviewed Echo: report reviewed (ef 15-20% positve intra atrial septal defect, no as or mr ) Cardiac cath: report reviewed (lt main patent, lad patent, lcx patent ramus mild , rca mid 40% diffuse, ef 10% qp;qs .09 no appreciable step up or step down ) - Telemetry EKG Rhythm: Sinus Rhythm
--- NOTE | 2017-10-04 13:11 | Cardiac Catherization Report ---
This is a left and right heart catheterization being done by Dr. Philippe. CLINICAL INFORMATION: A 47-year-old gentleman with severe LV dysfunction, presents with acute congestive heart failure, history of hypertension and is here for a left heart cath and right heart cath. Moderate sedation was performed under supervision. 30 minutes a total supervise sedation time, 0.5 mg of Versed and 25 mcg of fentanyl was given. SEDATION START TIME: 9:05 a.m. END TIME: 9:35 a.m. Left heart cath was performed via the right radial artery, sterile technique, local anesthesia, 6-Bhutanese radial sheath inserted. Right heart catheterization was performed in the right common femoral vein. Sterile technique, local anesthesia, 8-Bhutanese groin sheath inserted. Left heart cath was done. PROCEDURE FINDINGS: Right heart catheterization was done with a [place] catheter and PA saturation was 49%, RV sat was 51%, RA sat was 53%. Lower upper RA sat was 54%, aortic sat was 91%. No appreciable step up or step down noted. Wedge was 30 mmHg, PA was 69/41 mmHg, RV was 64/21 mmHg. RA was mean of 34 mmHg. Cardiac output was 3.75, cardiac index was 1.63. Qp/Qs was 0.9. Aortic pressure was 118/65. LV is 118 mmHg, LVEDP at 33 mmHg. No significant gradient on pullback. Severe left ventricular dysfunction, EF 10%. LV was dilated. Left heart catheterization performed via the right radial artery and left system engaged with JL3.5 catheter. Left main is large and patent, then bifurcates into a large LAD, is a wraparound LAD that is patent. Diagonal 1, diagonal 2 are small caliber vessel. Circ and AV groove is a medium caliber vessel patent. Ramus is a qphix-ra-thqpsh caliber vessel, has mild luminal air is patent. OM1 is small caliber vessel patent. RCA engaged with an AR mod catheter. It is a xpuyb-oe-wkcaac caliber vessel, proximal patent mid diffuse 40%, distal patent bifurcates into small PDA and PLV are patent. Severe LV dysfunction. LV gram, LVEDP of 33 mmHg, 5-Bhutanese catheters were taken over a guidewire, 6-Bhutanese radial sheath was discontinued. Radial dressing applied. 8-Bhutanese groin venous sheath was discontinued. Manual pressure held. No hematoma, no bleeding. SUMMARY: Left main patent, LAD patent, circ patent. Ramus mild luminal irregularity patent, OM1 patent, RCA nonobstructive diffuse 40% with severe LV dysfunction, EF 10%. This is nonischemic cardiomyopathy. LVEDP of 33 mmHg. Right heart catheterization shows severe pulmonary hypertension with cardiac output 3.75, cardiac index 1.63 and QP/QS 0.9 and no appreciable step up or step down on saturations and discussed in detail with the patient. JOB# [id number] CHEVY/TALYA OLSON
--- NOTE | 2017-10-04 13:40 | Progress Note ---
Assessment and Plan Assessment and plan: Patient is 47 yo man with history of tobacco dependency (1ppd), hypertension, diabetes mellitus type 2 (not on any medications) and alcohol abuse (he drinks MAD DOG 20/20 wine and six 24 oz [place] Ice beers everyday, last drink was 4 days ago, he was so swollen and distended, he didn't want to drink) who pw sob and ble edema. He was admitted for CHF. 2D ECHO reported as mild concentric left ventricular hypertrophy, global left ventricular systolic function is severely decreased, estimated ejection fraction is 15-20%, right ventricular global systolic function is mildly reduced , ASD is demonstrated by agitated saline contrast, trace TR, no pericardial effusion, IVc is dilated and markedly increased right atrial pressure read by Dr. Henna Rdz Acute systolic heart failure with Cardiomyopathy. iv lasix Tobacco dependency. 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 Hypertension: antihypertensives Noncompliance: counseling done Plan: s/p Cardiac cath==>NICMP, d/w [employer], Dr. Philippe, watch closely today, continue to treat with diuretics and d/c in AM History Interval history: Patient was seen and examined. Follow-up on current diagnosis for sob and leg edema which has improved. Overnight uneventful. Patient denies any chest pain, nausea/vomiting or severe headaches. Imaging, nursing note, chart, labs and old chart reviewed. Discussed with patient. Back from left heart cath via right radial access. No new issues. Hospitalist Physical - Physical exam Narrative exam: GEN: WDWN, NAD, Awake, Alert, Orientated x 3 HEENT: NCAT, EOMI, PERRL, OP Clear NECK: supple, no adenopathy, no thyromegaly, + JVD CVS/HEART: RRR, normal S1S2, pulses present bilaterally CHEST/LUNGS: bilateral crackles Symmetrical chest expansion, good air entry bilaterally GI/Abdomen: soft, NTND, good bowel sounds, no guarding or rebound /Bladder: no suprapubic tenderness, no CVA or paraspinal tenderness EXT/Skin: pitting BLE edema, no obvious rash MSK: FROM x 4 Neuro: CN 2-12 grossly intact, no new focal deficits Psych: calm - Constitutional Vitals: Temp Pulse Resp BP Pulse Ox 97.5 F L 78 16 126/87 100 10/04/17 11:37 10/04/17 11:37 10/04/17 11:37 10/04/17 11:37 10/04/17 11:37 General appearance: Present: well-nourished Results - Labs CBC & Chem 7: 10/04/17 04:20 10/04/17 07:35 Labs: Laboratory Last Values WBC 4.8 K/mm3 (4.5-11.0) 10/04/17 04:20 RBC 5.27 M/mm3 (3.65-5.03) H 10/04/17 04:20 Hgb 15.8 gm/dl (11.8-15.2) H 10/04/17 04:20 Hct 48.9 % (35.5-45.6) H 10/04/17 04:20 MCV 93 fl (84-94) 10/04/17 04:20 MCH 30 pg (28-32) 10/04/17 04:20 MCHC 32 % (32-34) 10/04/17 04:20 RDW 14.6 % (13.2-15.2) 10/04/17 04:20 Plt Count 161 K/mm3 (140-440) 10/04/17 04:20 Lymph % (Auto) 41.7 % (13.4-35.0) H 10/01/17 02:31 [place] % (Auto) 6.0 % (0.0-7.3) 10/01/17 02:31 Eos % (Auto) 1.8 % (0.0-4.3) 10/01/17 02:31 Baso % (Auto) 0.7 % (0.0-1.8) 10/01/17 02:31 Lymph # 1.6 K/mm3 (1.2-5.4) 10/01/17 02:31 [place] # 0.2 K/mm3 (0.0-0.8) 10/01/17 02:31 Eos # 0.1 K/mm3 (0.0-0.4) 10/01/17 02:31 Baso # 0.0 K/mm3 (0.0-0.1) 10/01/17 02:31 Seg Neutrophils % 49.8 % (40.0-70.0) 10/01/17 02:31 Seg Neutrophils # 2.0 K/mm3 (1.8-7.7) 10/01/17 02:31 PT 14.3 Sec. (12.2-14.9) 10/04/17 04:20 INR 1.05 (0.87-1.13) 10/04/17 04:20 Sodium 132 mmol/L (137-145) L 10/04/17 07:35 Potassium 4.8 mmol/L (3.6-5.0) 10/04/17 07:35 Chloride 92.3 mmol/L (98-107) L 10/04/17 07:35 Carbon Dioxide 26 mmol/L (22-30) 10/04/17 07:35 Anion Gap 19 mmol/L 10/04/17 07:35 BUN 15 mg/dL (9-20) 10/04/17 07:35 Creatinine 1.0 mg/dL (0.8-1.5) 10/04/17 07:35 Estimated GFR > 60 ml/min 10/04/17 07:35 BUN/Creatinine Ratio 15 % 10/04/17 07:35 Glucose 130 mg/dL (75-100) H 10/04/17 07:35 POC Glucose 103 (70-105) 10/04/17 11:43 Hemoglobin A1c 8.2 % (4-6) H 09/30/17 23:27 Calcium 9.0 mg/dL (8.4-10.2) 10/04/17 07:35 Magnesium 1.50 mg/dL (1.7-2.3) L 09/30/17 09:53 Total Bilirubin 1.30 mg/dL (0.1-1.2) H 10/01/17 02:31 Direct Bilirubin 0.5 mg/dL (0-0.2) H 09/30/17 09:53 Indirect Bilirubin 0.9 mg/dL 09/30/17 09:53 AST 19 units/L (5-40) 10/01/17 02:31 ALT 12 units/L (7-56) 10/01/17 02:31 Alkaline Phosphatase 101 units/L (35-129) 10/01/17 02:31 NT-Pro-B Natriuret Pep 925.4 pg/mL (0-450) H 09/30/17 09:53 Total Protein 6.7 g/dL (6.3-8.2) 10/01/17 02:31 Albumin 3.6 g/dL (3.9-5) L 10/01/17 02:31 Albumin/Globulin Ratio 1.2 % 10/01/17 02:31
[2017-10-04] MEDS: LOVENOX SUB-Q SCH (14:21)
[2017-10-04] MEDS: LOPRESSOR PO SCH ×2 (16:17→22:51)
[2017-10-04] MEDS: COZAAR PO SCH (16:17)
[2017-10-04] MEDS: PEPCID PO SCH ×2 (17:27→22:51)
[2017-10-04] MEDS: SODIUM CHLORIDE FLUSH SYRINGE 10 ML IV SCH ×2 (17:27→22:52)
[2017-10-05] MEDS: LASIX IV SCH (06:57)
[2017-10-05 07:01] LABS: Hematocrit 44.5 % (35.5-45.6); Hemoglobin 14.2 gm/dl (11.8-15.2); Mean Corpuscular HGB Conc 32 % (32-34); Mean Corpuscular Hemoglobin 30 pg (28-32); Mean Corpuscular Volume 92 fl (84-94); Platelet Count 145 K/mm3 (140-440); Red Blood Count 4.81 M/mm3 (3.65-5.03); Red Cell Distribution Width 14.3 % (13.2-15.2)
[2017-10-05 07:29] LABS: BUN/Creatinine Ratio 20; Blood Urea Nitrogen 18 mg/dL (9-20); Calcium 8.9 mg/dL (8.4-10.2); Hemolysis Index 23
[2017-10-05 08:41] VITALS: BP 123/92
--- NOTE | 2017-10-05 09:09 | Progress Note ---
Assessment and Plan Assessment: Acute systolic heart failure - improving Dilated NICMP - EF 15-20% Nonobstructive CAD ? ASD Acute respiratory failure - improved HTN HLP DM Severe pulmonary HTN ETOH/tobacco abuse - cessation encouraged Obesity Plan: Currently stable cardiac status. Convert IV lasix to PO 40mg BID. Cont ASA 81, lopressor, losartan. Indications, potential risks and benefits of cardiac defibrillator reviewed with pt. He currently declines LifeVest and wishes to readdress AICD candidacy as OP. Pt may discharge home from cardiology standpoint. Follow up in our [place] office with Dr. Anayeli Rdz on 10/08/2017 @ 10:00AM. The patient has been seen in conjunction with Dr. Brannon who agrees with the assessment and plan of care. Subjective Date of service: 10/05/17 Principal diagnosis: HF Interval history: pt resting comfortably up in chair, no current cardiac complaints. He states he feels ready to discharge home today. Objective Last Vital Signs Temp 99 F 10/05/17 08:39 Pulse 74 10/05/17 08:39 Resp 18 10/05/17 08:39 BP 123/92 10/05/17 08:39 Pulse Ox 94 10/04/17 15:30 - Physical Examination General: Appears Well HEENT: Positive: PERRL, EOMI Neck: Positive: trachea midline Cardiac: Positive: Reg Rate and Rhythm, S1/S2 Lungs: Positive: clear to auscultation Neuro: Positive: Grossly Intact Abdomen: Positive: Soft Incision: Cardiac Cath Site (no hematoma) Extremities: Present: edema (trace BLE) - Labs and Meds CBC 10/05/17 Range/Units 06:02 WBC 4.2 L (4.5-11.0) K/mm3 RBC 4.81 (3.65-5.03) M/mm3 Hgb 14.2 (11.8-15.2) gm/dl Hct 44.5 (35.5-45.6) % Plt Count 145 (140-440) K/mm3 Comprehensive Metabolic Panel 10/05/17 Range/Units 06:02 Sodium 135 L (137-145) mmol/L Potassium 4.3 (3.6-5.0) mmol/L Chloride 89.9 L (98-107) mmol/L Carbon Dioxide 28 (22-30) mmol/L BUN 18 (9-20) mg/dL Creatinine 0.9 (0.8-1.5) mg/dL Glucose 118 H (75-100) mg/dL Calcium 8.9 (8.4-10.2) mg/dL - Imaging and Cardiology EKG: report reviewed Echo: report reviewed (ef 15-20% positve intra atrial septal defect, no as or mr ) Cardiac cath: report reviewed (lt main patent, lad patent, lcx patent ramus mild , rca mid 40% diffuse, ef 10% qp;qs .09 no appreciable step up or step down ) - Telemetry EKG Rhythm: Sinus Rhythm
--- NOTE | 2017-10-05 09:21 | Discharge Summary ---
<EREN LAU - Last Filed: 10/05/17 16:09> Providers - Providers Date of Admission: 09/30/17 15:58 Date of discharge: 10/05/17 Attending physician: FLIP VÁSQUEZ 09/30/17 Consult to Case Management [CONS] Routine Services Needed at Discharge: Home Health Services [employer] Manager Notified:: copy given to cm 09/30/17 23:16 Consult to Dietitian/Nutrition [CONS] Routine Physician Instructions: Reason For Exam: Reason for Consult: Pt needs oral supplement 10/01/17 15:21 Consult to Physician [CONS] Routine Comment: Consulting Provider: BLANCA RZD Physician Instructions: Reason For Exam: new onset CHF 10/04/17 09:45 Consult to Cardiac Rehabilitation [CONS] Routine Reason For Exam: Cardiac Rehab Evaluation Primary care physician: PHYSICAL THERAPY INSTRUCTOR Hospitalization Condition: Stable Hospital course: Patient is 47 yo man presented to the emergency department with complaints of sob and ble edema. He was admitted for CHF. Patient was initiated on IV Lasix and echocardiogram was ordered which revealed ejection fraction of 15-20% with left ventricular hypertrophy and left ventricular systolic function severely decreased. Patient was initiated on Cardiology services was consulted and patient underwent cardiac cath which revealed lt main patent, lad patent, lcx patent ramus mild, rca mid 40% diffuse , ef 10%. Patient was initiated on beta blake, ARB and aspirin. Patient advised to follow up with lathe set up person Dr. Anayeli Rdz on 10/08/2017 @ 10:00AM. Patient was diagnosed with new onset diabetes type 2 with a hemoglobin A1c of 8.2 and was initiated on sliding scale insulin during his hospital stay. Patient was subsequently discharged with metformin and advised to follow-up with a primary care provider within one week of discharge. Discharge diagnoses Acute systolic heart failure Tobacco dependence Alcohol abuse Morbid obesity name Diabetes mellitus type 2 Hypertension Noncompliance Disposition: - TO HOME OR SELFCARE Time spent for discharge: 32 minutes Core Measure Documentation - Palliative Care Palliative Care/ Comfort Measures: Not Applicable - Core Measures Any of the following diagnoses?: none Exam - Constitutional Vitals: Temp Pulse Resp BP Pulse Ox 99 F 74 18 123/92 94 10/05/17 08:39 10/05/17 08:39 10/05/17 08:39 10/05/17 08:39 10/04/17 15:30 General appearance: Present: no acute distress, well-nourished - EENT Eyes: Present: PERRL ENT: hearing intact, clear oral mucosa - Neck Neck: Present: supple, normal ROM - Respiratory Respiratory effort: normal Respiratory: bilateral: CTA - Cardiovascular Heart Sounds: Present: S1 & S2. Absent: rub, click - Extremities Extremities: pulses symmetrical, No edema Peripheral Pulses: within normal limits - Abdominal General gastrointestinal: Present: soft, non-tender, non-distended, normal bowel sounds - Integumentary Integumentary: Present: clear, warm, dry - Musculoskeletal Musculoskeletal: gait normal, strength equal bilaterally - Psychiatric Psychiatric: appropriate mood/affect, intact judgment & insight - Neurologic Neurologic: CNII-XII intact, moves all extremities Plan Diet: low fat, low cholesterol, low salt, diabetic Follow up with: PRIMARY CARE, [Primary Care Provider] - 3-5 Days JAIR RDZ MD [Staff Physician] - 7 Days (10/08/2017 @ 10:00AM) [facility] [Provider Group] - 7 Days Prescriptions: Aspirin [Aspirin BABY CHEW TAB] 81 mg PO QDAY #30 tab.chew Furosemide [Lasix TAB] 40 mg PO 0600,1800 #60 tablet Losartan [Cozaar] 100 mg PO QDAY #30 tablet metFORMIN [Glucophage] 500 mg PO BID #60 tablet Metoprolol [Lopressor TAB] 25 mg PO BID #60 tablet <FLIP VÁSQUEZ - Last Filed: 10/06/17 07:10> Providers - Providers Date of Admission: 09/30/17 15:58 Attending physician: FLIP VÁSQUEZ 09/30/17 Consult to Case Management [CONS] Routine Services Needed at Discharge: Home Health Services [employer] Manager Notified:: copy given to 09/30/17 23:16 Consult to Dietitian/Nutrition [CONS] Routine Physician Instructions: Reason For Exam: Reason for Consult: Pt needs oral supplement 10/01/17 15:21 Consult to Physician [CONS] Routine Comment: Consulting Provider: BLANCA RDZ Physician Instructions: Reason For Exam: new onset CHF 10/04/17 09:45 Consult to Cardiac Rehabilitation [CONS] Routine Reason For Exam: Cardiac Rehab Evaluation Primary care physician: PHYSICAL THERAPY INSTRUCTOR Hospitalization Hospital course: I saw and evaluated the patient. I agree with the findings and the plan of care as documented in the Nurse Practitioner's~note, with the following corrections and additions. Exam - Constitutional Vitals: Temp Pulse Resp BP Pulse Ox 99 F 74 18 123/92 94 10/05/17 08:39 10/05/17 08:39 10/05/17 08:39 10/05/17 08:39 10/04/17 15:30
[2017-10-05] MEDS: HumaLOG SUB-Q SCH ×2 (09:24→13:35)
[2017-10-05] MEDS: LOPRESSOR PO SCH (09:48)
[2017-10-05] MEDS: COZAAR PO SCH (09:48)
[2017-10-05] MEDS: LOVENOX SUB-Q SCH (09:48)
[2017-10-05] MEDS: PEPCID PO SCH (09:48)
[2017-10-05] MEDS ORDERED: BABY ASPIRIN PO SCH (10:00)
[2017-10-05] MEDS: SODIUM CHLORIDE FLUSH SYRINGE 10 ML IV SCH (10:38)
[2017-10-05] MEDS ORDERED: LASIX PO SCH (18:00)
--- NOTE | 2017-10-06 10:59 | Vascular Lab Report ---
LOWER EXTREMITY VENOUS DUPLEX: REASON FOR EXAM: Pain and swelling of the lower extremities. COMMENTS ON THE RIGHT: All veins visualized are freely compressible without evidence of internal echogenicity. Flow is spontaneous and phasic throughout. A soft tissue change in the right knee area is consistent with a Henry's cyst. COMMENTS ON THE LEFT: All veins visualized are freely compressible without evidence of internal echogenicity. Flow is spontaneous and phasic throughout. A soft tissue change in the left knee area is consistent with a Henry's cyst. IMPRESSION: No evidence of acute or chronic deep venous thrombosis in either lower extremity. A soft tissue change in the right knee area is consistent with a Henry's cyst. A soft tissue change in the left knee area is consistent with a Henry's cyst.
== END 2017-10-05 15:46 | disposition home health service (06) | DRG 286 ==
LOC: ED 09:09 → 3A 15:58
PROVIDERS: ADMIT Internal Medicine; ATTEND Hospitalist
PROC: 4A023N8 Measurement of Cardiac Sampling and Pressure, Bilateral, Percutaneous Approach (ICD-10-PCS; principal; 2017-10-05)
PROC: B2111ZZ Fluoroscopy of Multiple Coronary Arteries using Low Osmolar Contrast (ICD-10-PCS; 2017-10-05)
PROC: B2151ZZ Fluoroscopy of Left Heart using Low Osmolar Contrast (ICD-10-PCS; 2017-10-05)
DX: I11.0 Hypertensive heart disease with heart failure (principal); J96.00 Acute respiratory failure, unspecified whether with hypoxia or hypercapnia; E46 Unspecified protein-calorie malnutrition; Z68.41 Body mass index [BMI] 40.0-44.9, adult; Q21.1 Atrial septal defect; I50.21 Acute systolic (congestive) heart failure; F10.10 Alcohol abuse, uncomplicated; F17.200 Nicotine dependence, unspecified, uncomplicated; E78.00 Pure hypercholesterolemia, unspecified; I25.10 Atherosclerotic heart disease of native coronary artery without angina pectoris; I42.9 Cardiomyopathy, unspecified; I27.20 Pulmonary hypertension, unspecified; E83.42 Hypomagnesemia; E11.65 Type 2 diabetes mellitus with hyperglycemia; E66.01 Morbid (severe) obesity due to excess calories; Z91.14 Patient's other noncompliance with medication regimen; Z71.89 Other specified counseling; Z71.41 Alcohol abuse counseling and surveillance of alcoholic; Z71.6 Tobacco abuse counseling
CPT/HCPCS: 36415; 71046; 80048; 80053; 80074; 82962; 83036; 83735; 83880; 85025; 85027; 85610; 93005; 93010; 93306; 93460; 93970; 96374; C1894; J0360; J1644; J1650; J1815; J1940; J2250; J3010; J3475; J7040; Q9967